=== PATIENT | male | born 1995 | race Caucasian/White ===

== ENCOUNTER 2020-07-03 10:13 | Emergency (ER) | payer OTHER ==
[~2020-07-03] VITALS: Ht 170.2 cm; Wt 59.1 kg
[2020-07-03] MEDS ORDERED: IBUPROFEN 800 MG TABLET PO ONE (10:30)
[2020-07-03] MEDS ORDERED: BACITRACIN 0.9 GM PACKET OINTMENT TP ONE (11:45)
[2020-07-03 11:53] VITALS: BP 125/86
== END 2020-07-03 11:56 | disposition home or self-care (01) ==
LOC: EMS 10:18
DX: S83.91XA Sprain of unspecified site of right knee, initial encounter (principal); M25.461 Effusion, right knee; W19.XXXA Unspecified fall, initial encounter; Y93.89 Activity, other specified; Y92.89 Other specified places as the place of occurrence of the external cause; Y99.8 Other external cause status
CPT/HCPCS: 29505